=== PATIENT | female | born 1980 | race Caucasian/White ===

== ENCOUNTER 2019-01-22 19:04 | Emergency (ER) | payer SELFPAY ==
[~2019-01-22] VITALS: Ht 165.1 cm; Wt 90.7 kg
[2019-01-22] MEDS ORDERED: IPRATRPIUM/ALBUTEROL 0.5/2.5MG 3 ML NEBU. ONE (19:15)
[2019-01-22] MEDS ORDERED: IPRATRPIUM/ALBUTEROL 0.5/2.5MG 3 ML NEBU. NEB ONE (19:15)
[2019-01-22] MEDS ORDERED: methylPREDNISolone SOD SUCC PF 125 MG/2 ML VIAL. IV ONE (19:15)
[2019-01-22 19:27] LABS: BASO # 0.1 x10^3/uL (0.0-0.2); BASO % 1 % (0-3); EOS # 0.1 x10^3/uL (0.0-0.7); EOS % 1 % (0-3); HEMOGLOBIN 15.3 g/dL (12.0-15.5); LYMPH # 1.1 x10^3/uL (1.0-4.8); LYMPH % 7 % (24-48); MEAN CORPUSCULAR HEMOGLOBIN 29 pg (25-35); MEAN CORPUSCULAR HGB CONC 34 g/dL (31-37); MEAN CORPUSCULAR VOLUME 87 fL (79-100); MONO % 7 % (0-9); NEUT # 12.6 x10^3/uL (1.8-7.7); NEUT % 85 % (31-73); PLATELET COUNT 287 x10^3/uL (140-400); RED BLOOD COUNT 5.19 x10^6/uL (3.50-5.40); RED CELL DISTRIBUTION WIDTH 12.7 % (11.5-14.5); WHITE BLOOD COUNT 14.8 x10^3/uL (4.0-11.0)
[2019-01-22 19:36] LABS: PROTHROMBIN TIME PATIENT 12.9 SEC (11.7-14.0)
[2019-01-22 19:47] LABS: CALCIUM 9.3 mg/dL (8.5-10.1); CREATININE 0.9 mg/dL (0.6-1.0); GFR 69.3; POTASSIUM 4.3 mmol/L (3.5-5.1)
[2019-01-22 19:58] LABS: ALBUMIN 4.2 g/dL (3.4-5.0); MAGNESIUM 2.1 mg/dL (1.8-2.4); TOTAL BILIRUBIN 0.9 mg/dL (0.2-1.0); TOTAL PROTEIN 8.3 g/dL (6.4-8.2)
--- NOTE | 2019-01-22 20:12 | RAD ---
Exam: Chest one view INDICATION: Shortness of breath TECHNIQUE: Frontal view of the chest Comparisons: None FINDINGS: The cardiomediastinal silhouette and pulmonary vessels are within normal limits. The lung and pleural spaces are clear. IMPRESSION: No acute cardiopulmonary process. Electronically signed by: Kevin Aguero MD (01/22/2019 8:09 PM) [facility]
[2019-01-22 20:18] LABS: BILIRUBIN,URINE NEGATIVE (NEG); CLARITY,URINE CLEAR; COLOR,URINE YELLOW; NITRITE,URINE NEGATIVE (NEG); PROTEIN,URINE NEGATIVE (NEG-TRACE); UROBILINOGEN,URINE 0.2 mg/dL (0.2 mg/dL)
[2019-01-22 20:19] LABS: BACTERIA,URINE 0 /HPF (0-FEW); RBC,URINE 0 /HPF (0-2); SQUAMOUS EPITHELIAL CELL,UR FEW /LPF; WBC,URINE OCC /HPF (0-4)
[2019-01-22 20:25] LABS: % BANDS 3 % (0-9); % EOS 1 % (0-5); % LYMPHS 9 % (24-48); % MONOS 6 % (0-10); % SEGS 81 % (35-66)
[2019-01-22 20:26] LABS: PLT ESTIMATE ADEQUATE (ADEQUATE)
[2019-01-22] MEDS ORDERED: IV NORMAL SALINE 1000ML BAG 1,000 ML IV ONE ×2 (20:30)
[2019-01-22 21:08] VITALS: BP 140/78
[2019-01-22] MEDS ORDERED: PRED50TA PO (21:29)
[2019-01-22] MEDS ORDERED: VENTOLIN HFA18 GM INH (21:29)
--- NOTE | 2019-01-22 21:29 | PHYS DOC ---
Past Medical History Past Medical History: COPD, Depression, Fibromyalgia, Hypertension, Other Additional Past Medical Histor: JOINT PROBLEMS (JAMAL BLISS APRN) Past Surgical History: No Surgical History, Cholecystectomy Additional Past Surgical Histo: CARPAL TUNNEL, COLLAR BONE, NO UTERUS AND OVARIES (JAMAL BLISS APRN) Alcohol Use: None Drug Use: Marijuana (JAMAL BLISS APRN) Adult General Chief Complaint Chief Complaint: SHORTNESS OF BREATH HPI HPI Patient is a 38 year old female with history of COPD, current smoker, hypertension, depression, who presents to the ED today complaining of cough and shortness of breath for 2 days. Patient denies any fever. She states she has tried using her inhaler with no relief. She states she recently moved here from [place] and does not have a PCP locally. (JAMAL BLISS APRN) Review of Systems Review of Systems Constitutional: Denies fever or chills [] Eyes: Denies change in visual acuity, redness, or eye pain [] HENT: Denies nasal congestion or sore throat [] Respiratory: Reports cough or shortness of breath Cardiovascular: No additional information not addressed in HPI [] GI: Denies abdominal pain, nausea, vomiting, bloody stools or diarrhea [] : Denies dysuria or hematuria [] Musculoskeletal: Denies back pain or joint pain [] Integument: Denies rash or skin lesions [] Neurologic: Denies headache, focal weakness or sensory changes [] All other systems were reviewed and found to be within normal limits, except as documented in this note. (JAMAL BLISS APRN) Current Medications Current Medications Current Medications Medications (Trade) Dose Ordered Sig/Larisa Start Time Stop Time Status Last Admin Dose Admin Albuterol/ Ipratropium (Duoneb) 3 ml STK-MED ONCE 01/22/19 19:15 01/22/19 19:16 DC Methylprednisolone Sodium Succinate (SOLU-Medrol 125MG VIAL) 125 mg 1X ONCE 01/22/19 19:15 01/22/19 19:16 DC 01/22/19 19:24 125 MG Sodium Chloride 1,000 ml @ 1,000 mls/hr 1X ONCE 01/22/19 20:30 01/22/19 21:29 DC 01/22/19 21:21 1,000 MLS/HR (NORMAN DOWLING DO) Allergies Allergies Allergies Coded Allergies Type Severity Reaction Last Updated Verified acetaminophen Allergy Intermediate 05/08/14 No latex Allergy Intermediate 05/08/14 Yes (NORMAN DOWLING DO) Physical Exam Physical Exam Constitutional: Well developed, well nourished, no acute distress, non-toxic berna earance. [] HENT: Normocephalic, atraumatic, bilateral external ears normal, oropharynx moist, no oral exudates, nose normal. [] Eyes: PERRLA, EOMI, conjunctiva normal, no discharge. [] Neck: Normal range of motion, no tenderness, supple, no stridor. [] Cardiovascular:Heart rate regular rhythm, no murmur [] Lungs & Thorax: Patient is short of breath on arrival to the ED. Diffuse wheezing throughout the lung bases. Abdomen: Bowel sounds normal, soft, no tenderness, no masses, no pulsatile masses. [] Skin: Warm, dry, no erythema, no rash. [] Back: No tenderness, no CVA tenderness. [] Extremities: No tenderness, no cyanosis, no clubbing, ROM intact, no edema. [] Neurologic: Alert and oriented X 3, normal motor function, normal sensory function, no focal deficits noted. [] Psychologic: Affect normal, judgement normal, mood normal. [] (JAMAL BLISS APRN) Current Patient Data Vital Signs Vital Signs Date Time Temp Pulse Resp B/P (MAP) Pulse Ox O2 Delivery O2 Flow Rate FiO2 01/22/19 21:08 118 24 140/78 (98) 97 Room Air 01/22/19 20:38 2.0 01/22/19 19:13 98.8 98.8 (NORMAN DOWLING DO) Lab Values Laboratory Tests Test 01/22/19 19:10 01/22/19 20:00 White Blood Count 14.8 x10^3/uL (4.0-11.0) H Red Blood Count 5.19 x10^6/uL (3.50-5.40) Hemoglobin 15.3 g/dL (12.0-15.5) Hematocrit 45.0 % (36.0-47.0) Mean Corpuscular Volume 87 fL (79-100) Mean Corpuscular Hemoglobin 29 pg (25-35) Mean Corpuscular Hemoglobin Concent 34 g/dL (31-37) Red Cell Distribution Width 12.7 % (11.5-14.5) Platelet Count 287 x10^3/uL (140-400) Neutrophils (%) (Auto) 85 % (31-73) H Lymphocytes (%) (Auto) 7 % (24-48) L Monocytes (%) (Auto) 7 % (0-9) Eosinophils (%) (Auto) 1 % (0-3) Basophils (%) (Auto) 1 % (0-3) Neutrophils # (Auto) 12.6 x10^3/uL (1.8-7.7) H Lymphocytes # (Auto) 1.1 x10^3/uL (1.0-4.8) Monocytes # (Auto) 1.0 x10^3/uL (0.0-1.1) Eosinophils # (Auto) 0.1 x10^3/uL (0.0-0.7) Basophils # (Auto) 0.1 x10^3/uL (0.0-0.2) Segmented Neutrophils % 81 % (35-66) H Band Neutrophils % 3 % (0-9) Lymphocytes % 9 % (24-48) L Monocytes % 6 % (0-10) Eosinophils % 1 % (0-5) Platelet Estimate Adequate (ADEQUATE) Prothrombin Time 12.9 SEC (11.7-14.0) Prothrombin Time INR 1.0 (0.8-1.1) Activated Partial Thromboplast Time 30 SEC (24-38) Sodium Level 140 mmol/L (136-145) Potassium Level 4.3 mmol/L (3.5-5.1) Chloride Level 103 mmol/L (98-107) Carbon Dioxide Level 25 mmol/L (21-32) Anion Gap 12 (6-14) Blood Urea Nitrogen 10 mg/dL (7-20) Creatinine 0.9 mg/dL (0.6-1.0) Estimated GFR (Cockcroft-Gault) 69.3 BUN/Creatinine Ratio 11 (6-20) Glucose Level 140 mg/dL (70-99) H Lactic Acid Level 2.3 mmol/L (0.4-2.0) H Calcium Level 9.3 mg/dL (8.5-10.1) Magnesium Level 2.1 mg/dL (1.8-2.4) Total Bilirubin 0.9 mg/dL (0.2-1.0) Aspartate Amino Transferase (AST) 15 U/L (15-37) Alanine Aminotransferase (ALT) 26 U/L (14-59) Alkaline Phosphatase 93 U/L (46-116) Creatine Kinase 104 U/L (26-192) Creatine Kinase MB (Mass) 1.4 ng/mL (0.0-3.6) Creatine Kinase MB Relative Index 1.3 % (0-4) Troponin I Quantitative < 0.017 ng/mL (0.000-0.055) BD-Cok-P-Type Natriuretic Peptide 130 pg/mL (0-124) H Total Protein 8.3 g/dL (6.4-8.2) H Albumin 4.2 g/dL (3.4-5.0) Albumin/Globulin Ratio 1.0 (1.0-1.7) Urine Collection Type Unknown Urine Color Yellow Urine Clarity Clear Urine pH 5.0 Urine Specific [place] 1.010 Urine Protein Negative mg/dL (NEG-TRACE) Urine Glucose (UA) Negative mg/dL (NEG) Urine Ketones (Stick) Negative mg/dL (NEG) Urine Blood Small (NEG) Urine Nitrite Negative (NEG) Urine Bilirubin Negative (NEG) Urine Urobilinogen Dipstick 0.2 mg/dL (0.2 mg/dL) Urine Leukocyte Esterase Negative (NEG) Urine RBC 0 /HPF (0-2) Urine WBC Occ /HPF (0-4) Urine Squamous Epithelial Cells Few /LPF Urine Bacteria 0 /HPF (0-FEW) Urine Mucus Mod /LPF Laboratory Tests 01/22/19 19:10 Laboratory Tests 01/22/19 19:10 (NORMAN DOWLING DO) EKG EKG [address] Dowling sinus tachycardia HR132 no STEMI[] (JAMAL BLISS [employer] CONSULTANT) Radiology/Procedures Radiology/Procedures []PROCEDURE: PORTABLE CHEST 1V Exam: Chest one view INDICATION: Shortness of breath TECHNIQUE: Frontal view of the chest Comparisons: None FINDINGS: The cardiomediastinal silhouette and pulmonary vessels are within normal limits. The lung and pleural spaces are clear. IMPRESSION: No acute cardiopulmonary process. Electronically signed by: Kevin Guo MD (01/22/2019 8:09 PM) [facility] DICTATED and SIGNED BY: KEVIN GUO MD DATE: 01/22/192008 (JAMAL BLISS APRN) Course & Med Decision Making Course & Med Decision Making Pertinent Labs and Imaging studies reviewed. (See chart for details) This is a 38-year-old female patient current smoker with history of COPD presenting today with shortness of breath for 2 days. Also complaining of a cough. I rates in the ED short of air. O2 sats 97% on room air. Heart rate in the 130s though patient states she just had a couple breathing treatments prior to coming to the ED. CBC with a WBC of 14.8 and a left shift, CMP-no acute findings. Lactic 2.3-she is afebrile with temperature of 98.8. I do not think this elevated lactic is from infection. Chest x-ray is negative. Her urine analysis is negative. Patient was given a DuoNeb treatment and Solu-Medrol. I offered admission, she states she does not have any insurance to continue being in the ED or the Hospital. She requested to be discharged. Paperwork was given. Follow-up information provided. Given prednisone and breathing treatments for home use. Encouraged to consider smoking cessation (JAMAL BLISS APRN) Dragon Disclaimer Dragon Disclaimer This electronic medical record was generated, in whole or in part, using a voice recognition dictation system. (JAMAL BLISS APRN) Departure Departure Impression: Primary Impression: COPD exacerbation Additional Impression: Smoking addiction Disposition: 01 HOME, SELF-CARE Condition: STABLE Referrals: NO PCP (PCP) Follow up with a primary care doctor from the list provided Patient Instructions: Chronic Obstructive Pulmonary Disease Exacerbation, Smoking Cessation Additional Instructions: You were evaluated in the emergency room for COPD exacerbation. We highly encourage you to consider smoking cessation. Use the medication provided as ordered. Follow-up with her doctor from the list provided. Scripts Albuterol Sulfate (VENTOLIN HFA INHALER) 18 Gm Hfa.aer.ad 2 PUFF INH Q4HRS for FOR ASTHMA, #1 INHALER 0 Refills Prov: JAMAL BLISS APRN 01/22/19 Prednisone (PREDNISONE) 50 Mg Tablet 1 TAB PO DAILY, #5 TAB Prov: JAMAL BLISS APRN 01/22/19 Attending Signature Attending Signature I have reviewed the PA/GYN's note and plan of care. I was available for consultation as needed during the patient's visit in the emergency department. I agree with the clinical impression, plan, and disposition. (NORMAN DOWLING DO) Problem Qualifiers JAMAL BLISS NATE Jan 22, 2019 21:29 NORMAN DOWLING DO Jan 23, 2019 02:04
--- NOTE | 2019-01-23 13:01 | EKG ---
[facility] [address] [place] [address] Test Date: 2019-01-22 Test Time: 19:21:34 Pat Name: ANDREW RUTH Department: Patient ID: [id number] Room: Gender: F Buyer Assistant: [facility] : 1980 Requested By: JAMAL BLISS Order Number: [id number] Reading MD: Jorge Purdy MD Measurements Intervals [place] Rate: 131 P: 77 TN: 142 QRS: 71 QRSD: 84 T: 34 QT: 290 QTc: 432 Interpretive Statements SINUS TACHYCARDIA Electronically Signed On 01-28-2019 17:30:03 CDT by Jorge Purdy MD
== END 2019-01-22 21:46 | disposition home or self-care (01) ==
LOC: ER 19:04
DX: J44.1 Chronic obstructive pulmonary disease with (acute) exacerbation (principal); I10 Essential (primary) hypertension; F32.9 Major depressive disorder, single episode, unspecified; F17.200 Nicotine dependence, unspecified, uncomplicated; Z91.040 Latex allergy status; Z88.6 Allergy status to analgesic agent
CPT/HCPCS: 36415; 71045; 80053; 81001; 82553; 83605; 83735; 83880; 84484; 85007; 85025; 85610; 85730; 87040; 93005; 94640; 96374; 99285; J2930; J7030; J7620